=== PATIENT | female | born 1975 | race Two or more races ===

== ENCOUNTER 2017-09-10 12:05 | Outpatient (CLI) | payer BC ==
[2017-09-10 13:12] LABS: BASOPHILS % (AUTO) 0.5 % (0.0-2.0); EOSINOPHILS % (AUTO) 0.6 % (0.0-6.0); HEMATOCRIT 38 % (33-45); HEMOGLOBIN 12.9 g/dL (11.5-14.8); LYMPHOCYTES # (AUTO) 2.1 /CMM (0.8-4.8); LYMPHOCYTES % (AUTO) 30.5 % (20.0-44.0); MEAN CORPUSCULAR HGB CONC 34 g/dl (31.0-36.0); MEAN CORPUSCULAR VOLUME 87 fL (82-100); MONOCYTES # (AUTO) 0.4 /CMM (0.1-1.30); MONOCYTES % (AUTO) 5.8 % (2.0-12.0); NEUTROPHILS # (AUTO) 4.3 /CMM (1.8-8.9); NEUTROPHILS % (AUTO) 62.6 % (43.0-81.0); PLATELET COUNT (AUTO) 301 /CMM (150-450); RDW COEFFICIENT OF VARIATION 13.6 (11.5-15.0); RED BLOOD CELL COUNT(AUTO) 4.39 MIL/uL (4.0-5.2); WHITE BLOOD COUNT (AUTO) 6.8 K/uL (4.3-11.0)
[2017-09-10 15:50] LABS: ALBUMIN 3.8 g/dL (3.4-5.0); BILIRUBIN,TOTAL 0.4 mg/dL (0.2-1.0); CALCIUM, SERUM 9.5 mg/dL (8.5-10.1); CREATININE 0.7 mg/dL (0.6-1.3); POTASSIUM 3.6 mmol/L (3.5-5.1); TOTAL PROTEIN, SERUM 7.6 g/dL (6.4-8.2)
[2017-09-10 15:58] LABS: THYROID STIMULATING HORMONE 0.86 uIU/mL (0.358-3.74)
[2017-09-11 07:50] LABS: APPEARANCE,URINE CLOUDY (CLEAR); BILIRUBIN,URINE NEGATIVE (NEGATIVE); BLOOD, URINE NEGATIVE Ery/uL (NEGATIVE); COLOR,URINE YELLOW (YELLOW); KETONES,URINE TRACE (NEGATIVE); LEUKOCYTE ESTERASE ,URINE NEGATIVE (NEGATIVE); NITRITE, URINE NEGATIVE (NEGATIVE); PROTEIN,URINE NEGATIVE (NEGATIVE); UGLUCOSE NEGATIVE (NEGATIVE); UROBILINOGEN,URINE 0.2 EU/dL (0.2)
[2017-09-11 08:47] LABS: BACTERIA,URINE Few /HPF (None Seen); RBC,URINE NONE SEEN /HPF (0-2); SQUAMOUS EPITHELIAL CELL,UR Few /HPF (None Seen); URINE AMORPHOUS URATE Many /HPF (None Seen); WBC,URINE 0-2 /HPF (0-3)
== END 2017-09-10 23:59 | disposition home or self-care (01) ==
LOC: LAB 12:05
DX: Z00.01 Encounter for general adult medical examination with abnormal findings (principal); R79.89 Other specified abnormal findings of blood chemistry
CPT/HCPCS: 36415; 80053-TC; 80061-TC; 81000-TC; 82306; 82728-TC; 82746; 83540-TC; 84443-TC; 85025-TC; 87086-TC

== ENCOUNTER 2017-10-26 08:21 | Outpatient (CLI) | payer BC | END 2017-10-26 23:59 | disposition home or self-care (01) | LOC: CARD 08:21 | DX: I42.9 Cardiomyopathy, unspecified (principal) | CPT/HCPCS: 93307-TC ==

== ENCOUNTER 2018-02-17 00:15 | Emergency (ER) | payer BC ==
[~2018-02-17] VITALS: Ht 167.6 cm; Wt 70.8 kg
[2018-02-17 00:20] VITALS: BP 128/74
[2018-02-17] MEDS ORDERED: DEXAMETHASONE SOLN 1 MG/1 ML UDC PO STA (00:31)
[2018-02-17] MEDS ORDERED: DEXAMETHASONE 4 MG TABLET ONE (00:45)
[2018-02-17] MEDS ORDERED: DEXAMETHASONE 1 MG TABLET ONE (00:45)
[2018-02-17] MEDS ORDERED: PENICILLIN G BENZATHINE 2.4 MMU/4 ML ML IM STA (01:19)
[2018-02-17] MEDS ORDERED: DEXAMETHASONE 1 MG TABLET PO ONE (01:30)
[2018-02-17] MEDS ORDERED: PENICILLIN G BENZATHINE 2.4 MMU/4 ML ML IM ONE (01:34)
== END 2018-02-17 02:06 | disposition home or self-care (01) ==
LOC: ER 00:17
DX: J02.9 Acute pharyngitis, unspecified (principal)
CPT/HCPCS: 87880; 96372; 99283; A4606; J0558; J8540; Z7610; 86403-TC